=== PATIENT | female | born 1980 | race African-American/Black ===

== ENCOUNTER 2017-07-07 09:31 | Emergency (ER) | payer SELFPAY ==
[~2017-07-07] VITALS: Ht 162.6 cm; Wt 85.0 kg
[2017-07-07 09:55] VITALS: BP 106/71
[2017-07-07] MEDS ORDERED: DIAZEPAM 5 MG TABLET PO ONE (10:30)
[2017-07-07] MEDS ORDERED: KETOROLAC 30 MG/1 ML IM ONE (10:30)
[2017-07-07] MEDS ORDERED: DIAZEPAM 5 MG TABLET ONE (10:40)
[2017-07-07] MEDS ORDERED: KETOROLAC 30 MG/1 ML ONE (10:40)
== END 2017-07-07 11:00 | disposition home or self-care (01) ==
LOC: ED 10:56
DX: S39.012A Strain of muscle, fascia and tendon of lower back, initial encounter (principal); X58.XXXA Exposure to other specified factors, initial encounter; Y93.89 Activity, other specified; Y92.89 Other specified places as the place of occurrence of the external cause; Y99.8 Other external cause status
CPT/HCPCS: 96372; 99283; J1885

== ENCOUNTER 2018-07-10 19:24 | Emergency (ER) | payer SELFPAY ==
[~2018-07-10] VITALS: Ht 154.9 cm; Wt 94.3 kg
[2018-07-10] MEDS ORDERED: ASPIRIN 81 MG TABLET CHEW ONE (19:56)
[2018-07-10] MEDS ORDERED: ASPIRIN 81 MG TABLET CHEW PO ONE (20:00)
[2018-07-10] MEDS ORDERED: AZITHROMYCIN 500 MG TABLET ONE (20:14)
[2018-07-10] MEDS ORDERED: CEFTRIAXONE 250 MG ONE (20:14)
[2018-07-10 20:20] LABS: BASOPHILS # (AUTO) 0.04 x10^3/uL (0-0.1); BASOPHILS % (AUTO) 1 % (0-1); EOSINOPHILS # (AUTO) 0.05 x10^3/uL (0-0.4); EOSINOPHILS % (AUTO) 1 % (1-7); LYMPHOCYTES # (AUTO) 2.75 x10^3/uL (1-3.4); LYMPHOCYTES % (AUTO) 34 % (22-44); MD NO; MEAN CORPUSCULAR HEMOGLOBIN 29.4 pg (27.0-34.8); MEAN CORPUSCULAR HGB CONC 33.8 g/dL (32.4-35.8); MEAN CORPUSCULAR VOLUME 86.9 fL (80-100); MEAN PLATELET VOLUME 8.8 fL (7.4-10.4); MONOCYTES # (AUTO) 0.52 x10^3/uL (0.2-0.8); MONOCYTES % (AUTO) 6 % (2-9); NEUTROPHILS # (AUTO) 4.75 x10^3/uL (1.8-6.8); NEUTROPHILS % (AUTO) 59 % (42-75); PLATELET COUNT 269 x10^3/uL (130-400); RED BLOOD COUNT 4.58 x10^6/uL (3.82-5.3); RED CELL DISTRIBUTION WIDTH 12.6 % (9.6-15.2)
[2018-07-10 20:26] LABS: ALANINE AMINOTRANSFERASE 33 U/L (12-78); ALBUMIN 3.3 g/dL (3.4-5.0); ANION GAP 5 mmol/L (5-15); CALCIUM 8.3 mg/dL (8.5-10.1); CHLORIDE 112 mmol/L (98-107); CREATININE 0.71 mg/dL (0.55-1.02)
[2018-07-10] MEDS ORDERED: AZITHROMYCIN 500 MG TABLET PO ONE (20:30)
[2018-07-10] MEDS ORDERED: CEFTRIAXONE 250 MG IM ONE (20:30)
[2018-07-10 20:31] LABS: ALKALINE PHOSPHATASE 83 U/L (45-117); BILIRUBIN,TOTAL 0.4 mg/dL (0.2-1.0); TOTAL PROTEIN 6.9 g/dL (6.4-8.2)
[2018-07-10 20:37] LABS: CULTURE INDICATED? YES; MICROSCOPIC INDICATED
[2018-07-10 20:53] LABS: TROPONIN I < 0.015 ng/mL (0.000-0.045)
[2018-07-10 21:22] VITALS: BP 131/74
== END 2018-07-10 21:24 | disposition home or self-care (01) ==
LOC: ED 21:10
DX: J20.9 Acute bronchitis, unspecified (principal); B34.9 Viral infection, unspecified; N89.8 Other specified noninflammatory disorders of vagina; Z87.891 Personal history of nicotine dependence
CPT/HCPCS: 36415; 71045; 80053; 81001; 84484; 84703; 85025; 87086; 87491; 87591; 93005; 96372; 99285; J0696